=== PATIENT | female | born 1975 | race Caucasian/White ===

== ENCOUNTER 2018-11-23 06:47 | Observation (INO) ==
--- NOTE | 2018-11-09 13:12 | Anesthesiology Consultation ---
Date of Service November 09, 2018 Assessment & Plan (1) Encounter for pre-operative examination: CHECK TEST AM DOS Chart Review Chart Review: Acceptable Risk for Surgery and Patient seen in Pre Admission Testing Teaching & Discussion Instructed NPO after midnight before surgery, except medications with 15 cc of water. Medication instructions provided according to the PAT guidelines. History Surgery Operation Date: 11/23/18 08:45 Proposed Procedures p Robotic Total Laparoscopic Hysterectomy - Vianey Albert MD, FACOG Height/Weight Height: 5 ft 2 in Weight: 61 kg Allergies Allergy/AdvReac Type Severity Reaction Status Date / Time No Known Allergies Allergy Unknown Verified 11/07/18 11:35 Medications Home Medications Medication Instructions Recorded Confirmed Last Taken Juice Plus Blend 1 dose PO DAILY 11/07/18 11/07/18 Unknown Juice Plus Protein Powder 1 dose PO DAILY 11/07/18 11/07/18 Unknown cholecalciferol (vitamin D3) 5,000 unit PO QAM 11/07/18 11/07/18 Unknown [Vitamin D3] cranberry 1 dose PO QAM 11/07/18 11/07/18 Unknown iron 1 dose PO QAM 11/07/18 11/07/18 Unknown multivitamin 1 tab PO QAM 11/07/18 11/07/18 Unknown Past Medical History Medical History Cervical dystonia Crohn disease s/p hemicolectomy, no longer an issue Spasmodic torticollis Has had lots of PT, has FROM Uterine fibroid Past Surgical History Surgical History History of bowel resection Removed scar tissue and fistulas "at least 10-12 inches" 1990s History of colonoscopy History of esophagogastroduodenoscopy (EGD) History of surgery REMOVAL OF BENIGN LABIAL TUMOR History of surgery REMOVAL OF UTERINE FIBROIDS History of wisdom tooth extraction Nausea and vomiting after administration of anesthetic agent Past Anesthesia History No Family Hx of Anesthesia Complications and Other PONV History of PONV Yes Motion Sickness Screening History of Motion Sickness: No Social History Smoking Status: Never smoker Do You Dip or Chew Tobacco: No Hx Alcohol Use: Yes Alcohol type: beer and wine alcohol intake frequency: a few times a month Hx Substance Use: No substance use type: does not use Exercise / Class Metabolic Activity 1 > 8 Run/Swim/Ski/Tennis Review of Systems Pt denies any recent chest pain, shortness of breath, palpitations, cough, fever or URI. Physical Exam Vital Signs BP: 116/74 P: 66bpm SPO2: 97% RA T: 98.4 F R: 16 ENMT Mouth: no dental restorations, no chipped teeth and no loose teeth Thyromental Distance: > or= 3.5 Finger Breadths (4) Mallampati Class: II Neck neck extension not limited Slight torticolis; head is mildly cocked to the left but patient has FROM. Respiratory normal respiratory effort Auscultation: lungs clear to auscultation bilaterally Cardiovascular Rate/Rhythm: regular rate and regular rhythm Heart Sounds: no murmur Extremities: no edema Testing Laboratory Results Blood Type O Positive 11/09/18 12:56 Antibody Screen NEGATIVE 11/09/18 12:56 Laboratory Tests 10/08/18 11:56 WBC 5.74 Hgb 12.0 Hct 37.1 Plt Count 340
[~2018-11-23 06:47] MED LIST: CEFAZOLIN 2000MG 2,000 MG/15 ML SYR IV SCH; LACTATED RINGER'S 1,000 ML IV SCH; LR 15ML/HR IV SCH; SCOPOLAMINE 1.5 MG TDSY TD SCH
[2018-11-23] MEDS ORDERED: SUCCINYLCHOLINE CHLORIDE 20 MG/ML 10 ML VIAL ONE (07:10)
[2018-11-23] MEDS ORDERED: DEXAMETHASONE SOD INJ 4 MG/ML VIAL ONE ×2 (07:10→08:13)
[2018-11-23] MEDS ORDERED: MIDAZOLAM HCL 1 MG/ML 2ML VIAL ONE (07:10)
[2018-11-23] MEDS ORDERED: NEOSTIGMINE METHYLSULFATE 5 MG/5 ML SYR ONE (07:10)
[2018-11-23] MEDS ORDERED: fentaNYL citrate 100 MCG/2 ML VIAL ONE (07:10)
[2018-11-23] MEDS ORDERED: PHENYLEPHRINE HCL 10 MG/ML VIAL ONE (07:10)
[2018-11-23] MEDS ORDERED: ONDANSETRON INJ 2 MG/ML 2 ML VIAL ONE ×2 (07:10→08:13)
[2018-11-23] MEDS ORDERED: GLYCOPYRROLATE 0.2 MG/ML VIAL ONE (07:10)
[2018-11-23] MEDS ORDERED: ePHEDrine sulfate 50 MG/ML AMP ONE (07:10)
[2018-11-23] MEDS ORDERED: PROPOFOL IV EMULSION 10 MG/ML 20 ML VIAL IV ONE (07:10)
[2018-11-23] MEDS ORDERED: LIDOCAINE HCL 2% 2 ML VIAL/AMP(20MG/ML) INFIL ONE (07:10)
[2018-11-23] MEDS ORDERED: HYDROmorphone INJ 1 MG/ML SYRINGE IV PRN (07:12)
[2018-11-23] MEDS ORDERED: ONDANSETRON INJ 2 MG/ML 2 ML VIAL IV PRN ×2 (07:12→09:53)
[2018-11-23] MEDS ORDERED: ePHEDrine sulfate 50 MG/ML AMP IV PRN (07:12)
[2018-11-23] MEDS ORDERED: MEPERIDINE HCL 25 MG/ML CARP IV PRN (07:12)
[2018-11-23] MEDS ORDERED: LABETALOL HCL IV 5 MG/ML 20ML IV PRN (07:12)
[2018-11-23] MEDS ORDERED: PHENYLEPHRINE 100MCG/ML 5ML SYR IV PRN (07:12)
[2018-11-23] MEDS ORDERED: ATROPINE SULFATE 0.1 MG/ML 10ML SYR IV PRN (07:12)
[2018-11-23] MEDS ORDERED: BUPIVACAINE 0.5 % 5 MG/1 ML MPF 30ML VIAL ONE (07:16)
--- NOTE | 2018-11-23 07:48 | History & Physical Bridge Note ---
Date of Service November 23, 2018 History & Physical Bridge Note I have examined the patient, reviewed the History & Physical and in the interval since the performance of the History & Physical I have noted the following changes of clinical significance: no changes noted
[2018-11-23] MEDS ORDERED: HYDROmorphone INJ 2 MG/ML SYR/VIAL ONE (08:47)
[2018-11-23] MEDS ORDERED: ACETAMINOPHEN 325 MG TAB PO PRN (09:53)
[2018-11-23] MEDS ORDERED: IBUPROFEN 600 MG TAB PO PRN (09:53)
[2018-11-23] MEDS ORDERED: OXYCODONE/ACETAMINOPHEN 5mg/325mg TAB PO PRN ×2 (09:53)
[2018-11-23] MEDS ORDERED: KETOROLAC 30 MG/ML VIAL IV PRN (09:53)
--- NOTE | 2018-11-23 09:53 | Post Operative Brief Note ---
Immediate Post Op Note v1 Date of Surgery November 23, 2018 Pre & Post Diagnosis Operation Date: 11/23/18 08:05 Pre-Op Diagnosis: Menorrhagia, Metorrhagia Submucous Leiomyoma of Uterus Post-Op Diagnosis: Menorrhagia, Metorrhagia Submucous Leiomyoma of Uterus Procedure Operation Date: 11/23/18 08:05 Actual Procedures p Robotic Assisted Total Laparoscopic Hysterectomy, Bilateral Salpingectomy, Lysis of Adhesions(Not Applicable) - Vianey Albert MD, FACOG Surgeon Vianey Albert MD, FACOG Mash Processing Operator Lisa Estimated Blood Loss 1 Findings See Below omental adhesions with some bowel tenting to anterior abdominal wall and uterine fundus and left posterior uterus. liver edge not seen. normal ovaries bilaterally. normal fallopian tubes. uterus mildly enlarged with subserosal fibroids noted. cystoscopy findings with normal bladder filling and normal ureteral jets. Fluids 1600cc Specimens uterus, cervix, bilateral fallopian tubes. Drains Wasserman Catheter (18 Fr catheter inserted at start of case by Dr. Albert and post cystoscopy by Dr. Gonzalez) Complications none Disposition Accompanied Patient To Recovery: No Disposition: Recovery Room
[2018-11-23] MEDS ORDERED: LACTATED RINGER'S 1,000 ML IV SCH (10:00)
[2018-11-23] MEDS: fentaNYL citrate 100 MCG/2 ML VIAL IV PRN ×2 (10:18→10:23)
[2018-11-23] MEDS ORDERED: ROCURONIUM BROMIDE 10 MG/ML 5 ML VIAL ONE (10:19)
[2018-11-23] MEDS ORDERED: KETOROLAC 30 MG/ML VIAL ONE (10:19)
[2018-11-23] MEDS ORDERED: METHYLENE BLUE 0.5% 10 ML VIAL ONE (10:19)
--- NOTE | 2018-11-23 10:48 | Anesthesiology Progress Note ---
Date of Service November 23, 2018 Anesthesia Post Procedure Vital Signs Vital Signs: Temp Pulse Pulse Resp BP BP Pulse Ox 11/23/18 10:35 36.3 C L 68 16 112/61 100 11/23/18 10:25 64 16 114/67 100 11/23/18 10:15 75 16 120/62 100 11/23/18 10:06 36.0 C L 81 16 116/62 100 11/23/18 07:17 36.8 C 79 16 129/78 100 Notes Mental Status: alert / awake / arousable Patient Amnestic to Procedure: Yes Nausea / Vomiting: adequately controlled Pain: adequately controlled Airway Patency, RR, SpO2: stable & adequate BP & HR: stable & adequate Hydration State: stable & adequate Anesthetic Complications: no major complications apparent and Pt Satisfied with anesthetic care
--- NOTE | 2018-11-23 11:10 | Operative Report ---
DATE OF OPERATION: 11/23/2018 PREOPERATIVE DIAGNOSES: 1. Menorrhagia. 2. Metrorrhagia. 3. Uterine fibroids, submucosal fibroids 4. Abnormal ultrasound findings. POSTOPERATIVE DIAGNOSES: 1. Same. 2. Pelvic and peritoneal adhesions. PROCEDURES: 1. Total laparoscopic hysterectomy. 2. Bilateral salpingectomies. 3. Cystoscopy. 4. Lysis of adhesions. 5. Robotic assistance. SURGEON: Vianey Albert MD GROUND WIRER: Jadiel Gonzalez MD INTRAVENOUS FLUIDS: 1600 mL. ESTIMATED BLOOD LOSS: 1 mL. ANESTHESIA: General. FINDINGS: Large amount of omental adhesions to the anterior abdominal wall, fundus of the uterus and posterior wall of the left-sided uterus. Bowel was tenting upwards; however, most of the adhesions were filmy. Normal ovaries and tubes bilaterally. Uterus mildly enlarged with evidence of subserosal fibroid. Liver edge not seen due to adhesions. INDICATIONS: A 43-year-old with a history of menometrorrhagia with known submucosal fibroid previously that was treated with hysteroscopic myomectomy with improved bleeding profile. Her bleeding ended up returning as abnormal. She had an evaluation in the office to include ultrasound, endometrial biopsy and laboratory studies. At this point, she elects definitive hysterectomy for her treatment of suspected return of submucosal fibroid. DESCRIPTION OF PROCEDURE: The patient was taken to the operating room, identified. After adequate general anesthesia was obtained, she was placed in the dorsal lithotomy position and prepped and draped in the usual sterile fashion. Attention was turned to the patient's vagina and a Wasserman catheter was placed under sterile conditions. A weighted speculum and anterior retractor were used to visualize the cervix which was grasped in its anterior lip with a single tooth tenaculum. A single interrupted suture of 0 Vicryl was placed at 3 o'clock position. The cervix was attempted to be dilated; however, this was difficult. Decision was made to proceed with peritoneal entry in order to ultimately watch the uterus during manipulator placement. At this point, attention was then turned to the abdomen. A knife was used to create a skin incision about 2 fingerbreadths above the umbilicus within the prior laparotomy scar that the patient had had. This opening was stretched. The Veress needle was placed intraperitoneally with an opening pressure of 4 mmHg. A CO2 pneumoperitoneum was created. The optical 12 mm trocar was then placed into the abdominal cavity and abdominal placement was confirmed using the laparoscope connected to its light source and camera. Immediate visualization of adhesions of the omentum in the midline were noted. The camera was able to be manipulated around the midline adhesions to the left side of the pelvis. This allowed for placement of an 8 mm da Yariel trocar by first making a skin incision and then placing under direct visualization, a da Yariel trocar. Through that trocar, a scissor was used with bipolar energy and cutting to take down some of the adhesions in the midline to allow for better visualization of the whole pelvis. The patient had been placed in steep Trendelenburg. There was evidence of omental adhesions to the fundus of the uterus and towards the left lower posterior uterus. There was also evidence of bladder adhesions anteriorly. The right pelvis and anterior abdominal wall was then able to be visualized with further removal of midline omental adhesions. This allowed for placement of another da Yariel trocar site at the right side. Once this was able to be placed, the decision was made to proceed with docking of the da Yariel robot. Prior to docking the robot, the optical effects camera operator returned to the vagina where the cervix was then sequentially dilated under direct visualization laparoscopically and the [employer] uterine manipulator cup was gently placed through the cervical os and the balloon was inflated. The uterus had been sounded to 8 cm. The 3 o'clock suture material was tied to the original cup and then the stabilizing cup was placed to allow for uterine manipulation. The da Yariel robot was brought to the patient's bedside. The appropriate instrument arms were connected to the appropriate trocars. The camera was introduced. Monopolar marcela was brought through instrument arm #2 and fenestrated bipolar through instrument arm #1. Now, the optical effects camera operator went to the console and the uterus was manipulated from below by the human resources office assistant. There were dense and filmy peritoneal adhesions to the anterior uterus and lower uterine segment that needed to be taken down. Once this was completed, the right uterine ovarian ligament, round ligament complex was identified. It was coagulated after the fallopian tube was completely dissected in multiple grasps, followed by use of the monopolar marcela to cut and take down the tissues. The round ligament was then coagulated and transected on the right side. The uterine artery pedicle was skeletonized after the bladder flap was taken down from this side. The uterine artery pedicle was then coagulated on this side and then attention was turned to the left uterine-ovarian round ligament complex. The fallopian tube on this side was completely dissected from the mesosalpinx and the uteroovarian ligament was coagulated and cut followed by the round ligament, which was doubly coagulated and cut and then the broad ligament attachments were further coagulated and cut. The bladder flap was begun from the left side towards the midline again taking down some significant peritoneal adhesions to the anterior lower uterine segment that were both dense and filmy. The uterine artery pedicle was then skeletonized on this side and it was coagulated and transected in multiple grasps. The cardinal ligament attachments were further coagulated and transected, freeing the uterine artery pedicle from the planned colpotomy site. The bladder flap was further dissected on the left side at this time going through some dense and filmy adhesions and pushing the bladder well away from the planned colpotomy site anteriorly from the left. Attention was then returned to the right uterine artery pedicle, which was then recoagulated and was begun to be transected. The cardinal ligament attachments were further taken down after the bladder was pushed well away from the planned operative field. The colpotomy site was completely cleared on the right side with further dissection of the filmy and dense adhesions of the anterior lower uterine segment. This freely mobilized the colpotomy cup completely where a colpotomy then took place. The specimen was completely transected. It was brought out vaginally. A sponge was replaced in the vagina to allow for maintenance of the pneumoperitoneum. The cuff was then closed in a routine fashion using 2-0 V-Loc 90 suture that was passed vaginally and the #1 instrument arm was replaced with a large needle city driver. The cuff was closed in the routine fashion and back stitches were placed. The sponge in the vagina was removed and there was no air leak. The patient will be given IV methylene blue and a cystoscopy took place with normal findings of bladder filling. No sutures in the bladder and normal ureteral jets. At this point, the da Yariel robot was undocked and moved away from the patient's bedside. The CO2 gas was allowed to escape from the patient's abdomen. A new Wassermna catheter had been placed. The patient was placed in flat positioning. The trocars had been removed. The fascia was reapproximated with single interrupted suture of 0 Vicryl at the supraumbilical skin incision site. All the incisions were injected with Marcaine and closed with 4-0 Vicryl in a subcuticular fashion. They were dressed with Dermabond. The patient was returned to the supine position. She was awoken from anesthesia and transferred to the recovery room in stable condition. All sponge, lap and needle counts were correct x2. I attest to the content of the Intraoperative Record and any orders documented therein. Any exceptions are noted below. JESSICA
[2018-11-23] MEDS ORDERED: CHECK SCOPOLAMINE PATCH PLACEMENT SCH (16:00)
--- NOTE | 2018-11-24 17:51 | Discharge Summary ---
Date of Service November 23, 2018 Admission HPI Per Admitting Provider Admission Diagnoses: menorrhagia, metrorrhagia, submucosal fibroids, abnormal ultrasound findings Discharge Diagnoses: same, pelvic and peritoneal adhesions. Procedures: Total laparoscopic hysterctomy, Bilateral Salpingectomies, Lysis of Adhesions, Cystoscopy, Robotic Assistance. Discharge Data Procedures Performed Operation Date: 11/23/18 08:05 Actual Procedures p Robotic Assisted Total Laparoscopic Hysterectomy, Bilateral Salpingectomy, Lysis of Adhesions(Not Applicable) - Vianey Albert MD, [facility] Hospital Course (1) Menorrhagia: (2) Metrorrhagia: (3) Fibroids, submucosal: (4) Abnormal ultrasound of pelvis: The patient underwent the above stated procedures without incident. Her EBL was 1cc. She had an unremarkable postoperative course and was stable for discharge home on pod #0. She was given appropriate discharge instructions and pain medicine prescriptions and was to followup in office in 2 weeks.
--- OUTSIDE RECORDS SUMMARY | 2018-12-06 10:36 | External Medical Summary | Continuity of Care Document ---
:1975 Author Name Phylicia Ruano, Provider Address Unavailable Unavailable , Care Team Providers Name Role Phone Vianey Albert M.D. Un[place] [email or web address] Ruano Unavailable [email or web address] [email or web address] M.D., V Unavailable Unavailab le Unavailable Unavailable Unavailable Problems Abnormal ultrasound of uterus (793.5) (R93.5) Submucous leiomyoma of uterus (218.0) (D25.0) Menorrhagia (626.2) (N92.0) Metrorrhagia (626.6) (N92.1) Screening for thyroid disorder (V77.0) (Z13.29) Encounter for screening for diabetes mellitus (V77.1) (Z13.1 ) Encounter for screening for lipoid disorders (V77.91) (Z13.2 20) Encounter for routine gynecological examination (V72.31) (Z0 1.419) Spasmodic torticollis (333.83) (G24.3) History of Crohn's disease (555.9) (K50.90) Status: Resolved Allergies and Adverse Reactions No Known Drug Allergies (Allergy) Dust (Allergy) Mold (Allergy) Pollen (Allergy) Medications Neomycin Sulfate 500 MG Oral Tablet; 2 t ablets by mouth at 2pm, 5pm and 10pm day before surgery. Bindu Albert Start: 12-Nov-2018 Quantity: 6 Refills: 0 Erythromycin Base 500 MG Oral Tablet; ta ke 2 tablets by mouth at 2pm, 5pm and 10pm day before surgery Bindu Albert Start: 12-Nov-2018 Quantity: 6 Refills: 0 Cranberry TABS Refills: 0 Ibuprofen TABS Refills: 0 Vitamin B-12 SOLN Refills: 0 Multi Vitamin/Minerals TABS Refills: 0 Protein 76 % POWD Refills: 0 Iron TABS Refills: 0 Vitamin D TABS Refills: 0 Magnesium TABS Refills: 0 Procedures Endometrial Biopsy Date: 09-Nov-2018 History of Vulvar Surgery Status: Comple amor History of Small Bowel Resection Status: Completed History of Oral Surgery Tooth Extraction Status: Completed History of Hysteroscopy With Removal Of Submucous Status: Completed Leiomyomata Immunizations tetanus toxoid, adsorbed On: 2011 Family History Unknown Family Member Family history of Hypertension (V17.49) Status: Active Comments: Family History Family history of Pure Hypercholesterolemia Status: Active Comments: Family History Family history of Endometriosis Status: Active Comments : Family History Plan of Treatment Planned Encounters Appointment; Jodie Gamez M.D. Start: Feb-2019 9:40 Request Planned Observations Planned Goals not documented Results BLOOD BANK HOLD TUBE Laboratory: [facility] Laboratory [address] [place] [facility] [address] tel: 23-Nov-2018 7:05 BLOOD BANK HOLD TUBE Run: 11/23/18 0723 [facility] Pathology Report ---- ---- Name: MANDY MURRAY Lemuel Age/Sex: 43/F [id number] Unit: [id number] Status: [facility] Room/Bed:Re11/23/18 Disch: Att Dr: Vianey Albert MD (G ---- ---- ------ Spec: [id number] Collecte d: 11/23/18Received: 11/23/18 [facility] Dr: Vianey Albert MD (CHISEL WORKER/OB)Copy To : RV. Vera, Mónica Prods: (NO ORDERED PRODUCTS)Ord Tests: (NO REPORTAB LE TESTS) ---- ---- Test Result Flag Reference Site ---- ---- --------<No reportable results> ---- ---- Tests: Date Time Order Change Action User11/12 09/01 5171 Blood Bank Hold 1 NEW [id number] ---- ---- ---- END OF REPORT , Urine - Point Of Laboratory: [facility] Laboratory [address] [facility] (Pending) [facility] [address] tel: 23-Nov-2018 0:00 , Urine (Point of Care) NEG Ran ge: NEG Vital Signs 09-Nov-2018 11:37 Systolic 122 mm[Hg] Diastolic 78 mm[Hg] Weight 134.2 lb BSA Calculated 1.64 m2 BMI Calculated 23.58 kg/m2 Height 63.25 in Encounters Appointment; Vianey Albert M.D. 23-Nov-2018 8:00 Encounter Diagnosis: Problem not documented Appointment; Vianey Albert M.D. 09-Nov-2018 11:45 Encounter Diagnosis: Problem not documented Appointment; OBSATHISH CORTES1, Ultrasound 17-Oct-2018 12:30 Encounter Diagnosis: Problem not documented Appointment; Vianey Albert M.D. 17-Oct-2018 12:30 Encounter Diagnosis: Problem not documented Appointment; TIM CORTES1, Ultrasound 11-Oct-2018 12:00 Encounter Diagnosis: Problem not documented Appointment; Vianey Albert M.D. 08-Oct-2018 11:15 Encounter Diagnosis: Problem not documented Appointment; Jodie Gamez M.D. 9:40 Encounter Diagnosis: Problem not documented
== END 2018-11-23 18:45 | disposition home or self-care (01) ==
LOC: ASU 06:47 → 4N 06:47